=== PATIENT | male | born 1935 | race African-American/Black ===

== ENCOUNTER 2018-10-01 19:06 | Inpatient (IN) | payer OTHER ==
[~2018-10-01] VITALS: Ht 165.1 cm; Wt 87.1 kg
[2018-10-01] MEDS: IPRATROPIUM/ALBUTEROL 0.5-3(2.5)MG/3ML NEB INH SCH (01:25)
[2018-10-01] MEDS ORDERED: ALBU18HF2 IH (19:18)
[2018-10-01] MEDS ORDERED: METHYLPREDNISOLONE SOD SUCC 125 MG/2 ML VIAL IV STA (19:32)
[2018-10-01] MEDS ORDERED: IPRATROPIUM BROMIDE (0.02%) 0.5MG/2.5ML NEB HHN STA (19:32)
[2018-10-01] MEDS ORDERED: ALBUTEROL (0.083%) 2.5MG/3ML NEB HHN STA (19:32)
[2018-10-01] MEDS ORDERED: ASPIRIN 81MG TABLET PO ONE (19:45)
[2018-10-01] MEDS ORDERED: NITROGLYCERIN OINT 1GM/INCH UDPKT TD ONE (19:45)
[2018-10-01] MEDS ORDERED: FUROSEMIDE 40MG/4ML VIAL IV ONE (19:45)
[2018-10-01 22:25] LABS: CHLORIDE 109 mEq/L (98-107)
[2018-10-01 22:28] LABS: INR 1.1; PARTIAL THROMBOPLASTIN TIME 31.8 sec (23.4-31.0); PROTHROMBIN TIME 11.4 sec (9.1-11.1)
[2018-10-01] MEDS ORDERED: AZITHROMYCIN 500 MG in DEXT 5% WATER 250 ML IV STA (22:51)
[2018-10-01] MEDS ORDERED: CEFTRIAXONE 1 G PREMIX 50 ML IV ONE (23:00)
[2018-10-01] MEDS ORDERED: ASPIRIN 325MG EC TABLET PO ONE (23:00)
[2018-10-01] MEDS ORDERED: DIPHENHYDRAMINE 50MG/ML VIAL IV PRN (23:30)
[2018-10-01] MEDS ORDERED: IPRATROPIUM/ALBUTEROL 0.5-3(2.5)MG/3ML NEB INH PRN (23:30)
[2018-10-01] MEDS ORDERED: MAGNESIUM/ALUMINUM HYDROXIDE/SIMETHICONE 30ML UDC PO PRN (23:30)
[2018-10-01] MEDS ORDERED: HYDROCODONE/ACETAMINOPHEN 5/325MG TABLET PO PRN (23:30)
[2018-10-01] MEDS ORDERED: DOCUSATE SODIUM 100MG CAPSULE PO PRN (23:30)
[2018-10-01] MEDS ORDERED: ONDANSETRON HCL 4MG/2ML INJ IV PRN (23:30)
[2018-10-01] MEDS ORDERED: ACETAMINOPHEN 650MG SUPP PR PRN (23:30)
[2018-10-01] MEDS ORDERED: NA PHOS,M-B/NA PHOS,DI-BA ENEMA 118ML PR PRN (23:30)
[2018-10-01] MEDS ORDERED: GUAIFENESIN 200MG/10ML SUGAR FREE UDC PO PRN (23:30)
[2018-10-01 23:59] LABS: HEMATOCRIT. 42.2 % (42.0-52.0); HEMOGLOBIN. 13.6 g/dL (14.0-18.0); MEAN CORPUSCULAR HEMOGLOBIN 29.3 pg (28.0-32.0); MEAN CORPUSCULAR VOLUME 91.1 fL (80.0-94.0); MEAN PLATELET VOLUME 9.9 fl (7.4-10.4); RED BLOOD CELL COUNT 4.64 mill/uL (4.7-6.1); RED CELL DISTRIBUTION WIDTH 16.4 % (11.6-14.6)
[2018-10-02 02:31] LABS: PLATELET ESTIMATE DECREASED
[2018-10-02 02:40] LABS: PLATELET 30 x1000/uL (130-400)
[2018-10-02 06:35] LABS: CHLORIDE 106 mEq/L (98-107)
[2018-10-02 06:38] LABS: HEMATOCRIT. 39.9 % (42.0-52.0); HEMOGLOBIN. 12.9 g/dL (14.0-18.0); MEAN CORPUSCULAR HEMOGLOBIN 29.4 pg (28.0-32.0); MEAN CORPUSCULAR VOLUME 91.1 fL (80.0-94.0); RED BLOOD CELL COUNT 4.38 mill/uL (4.7-6.1); RED CELL DISTRIBUTION WIDTH 16.5 % (11.6-14.6)
[2018-10-02 06:42] LABS: LDL CHOLESTEROL 51 mg/dL (5-100)
[2018-10-02 06:43] LABS: HDL CHOLESTEROL 60 mg/dL (40-59)
[2018-10-02 07:09] LABS: PLATELET ESTIMATE DECREASED
[2018-10-02] MEDS: SODIUM CHLORIDE 0.9% INJ 3ML FLUSH IVF SCH ×3 (08:00→22:36)
[2018-10-02] MEDS ORDERED: ENOXAPARIN 40MG/0.4ML SYR SUBCUT SCH (09:00)
[2018-10-02] MEDS: METHYLPREDNISOLONE SOD SUCC 125 MG/2 ML VIAL IV SCH ×2 (10:30→21:55)
[2018-10-02] MEDS: IPRATROPIUM/ALBUTEROL 0.5-3(2.5)MG/3ML NEB INH SCH ×2 (10:40→17:39)
[2018-10-02] MEDS: CLONIDINE 0.1MG TABLET PO PRN (15:39)
[2018-10-02 18:33] VITALS: BP 134/65
[2018-10-02 20:00] VITALS: BP_SYST 106; BP_SYST 119; BP_DIAS 54; BP_DIAS 71
[2018-10-02] MEDS ORDERED: PIPERACILLIN/TAZ 2.25G PREMIX 50 ML IV SCH (21:15)
[2018-10-02] MEDS: AZITHROMYCIN 500 MG in DEXT 5% WATER 250 ML IV SCH (23:15)
[2018-10-02] MEDS: INSULIN GLARGINE UD 100 UNITS/ML SYR SUBCUT SCH (23:23)
[2018-10-03] VITALS: BP 128/72
[2018-10-03] MEDS ORDERED: PIPERACILLIN/TAZ 2.25G PREMIX 50 ML IV SCH
[2018-10-03] MEDS: IPRATROPIUM/ALBUTEROL 0.5-3(2.5)MG/3ML NEB INH SCH ×4 (01:04→21:16)
[2018-10-03] MEDS: METHYLPREDNISOLONE SOD SUCC 125 MG/2 ML VIAL IV SCH (02:41)
[2018-10-03 04:00] VITALS: BP 142/77
[2018-10-03] MEDS: SODIUM CHLORIDE 0.9% INJ 3ML FLUSH IVF SCH ×3 (05:51→21:21)
[2018-10-03 08:00] VITALS: BP 140/75
[2018-10-03] MEDS ORDERED: VANCOMYCIN 1500MG in DEXTROSE 5% WATER 250ML IV NR (08:00)
[2018-10-03] MEDS ORDERED: LEVOFLOXACIN 500MG PREMIX 100 ML IV NR (08:00)
[2018-10-03] MEDS: CHOLECALCIFEROL (D3) 1000 UNIT TABLET PO SCH (09:00)
[2018-10-03 10:32] LABS: HEMATOCRIT. 37.3 % (42.0-52.0); HEMOGLOBIN. 12.2 g/dL (14.0-18.0); MEAN CORPUSCULAR HEMOGLOBIN 29.4 pg (28.0-32.0); MEAN CORPUSCULAR VOLUME 89.7 fL (80.0-94.0); MEAN PLATELET VOLUME 8.5 fl (7.4-10.4); PLATELET 96 x1000/uL (130-400); RED BLOOD CELL COUNT 4.16 mill/uL (4.7-6.1); RED CELL DISTRIBUTION WIDTH 16.6 % (11.6-14.6)
[2018-10-03] MEDS: INSULIN GLARGINE UD 100 UNITS/ML SYR SUBCUT SCH ×2 (10:38→21:23)
[2018-10-03 10:42] LABS: CHLORIDE 107 mEq/L (98-107)
[2018-10-03] MEDS ORDERED: CHOL200059 PO (11:46)
[2018-10-03] MEDS ORDERED: VITA1CAP PO (11:46)
[2018-10-03 11:52] LABS: T4 FREE 1.09 ng/dL (0.76-1.46)
[2018-10-03 12:00] VITALS: BP 148/81
[2018-10-03] MEDS ORDERED: ATOR80TA MT (12:03)
[2018-10-03] MEDS ORDERED: PANT40TA4 MT (12:03)
[2018-10-03] MEDS ORDERED: FURO-152 MT (12:03)
[2018-10-03] MEDS ORDERED: AMLO5TAB4 MT (12:03)
[2018-10-03] MEDS ORDERED: CARB1TAB7 MT (12:03)
[2018-10-03] MEDS ORDERED: CLOP75TA16 MT (12:03)
[2018-10-03] MEDS ORDERED: TAMS-11 MT (12:03)
[2018-10-03] MEDS ORDERED: CALC0.253 MT (12:03)
[2018-10-03] MEDS ORDERED: MIR25 MT (12:03)
[2018-10-03] MEDS ORDERED: FLUT1DIS6 INH (12:07)
[2018-10-03] MEDS: BLOOD SUGAR DIAGNOSTIC STRIP TEST SCH ×3 (12:10→21:21)
[2018-10-03 12:33] LABS: D-DIMER 2.79 mg/L FEU (<0.50)
[2018-10-03] MEDS ORDERED: METHYLPREDNISOLONE SOD SUCC 40 MG/ML VIAL IV SCH (14:00)
[2018-10-03] MEDS ORDERED: DEXTROSE 50% WATER 50ML SYRINGE IV PRN (14:30)
[2018-10-03] MEDS: INSULIN LISPRO 100 UNITS/ML SUBCUT SCH ×3 (14:47→21:22)
[2018-10-03 16:00] VITALS: BP 159/82
[2018-10-03 16:39] LABS: CREATINE KINASE MB FRACTION 5.2 ng/mL (0.5-3.6)
[2018-10-03] MEDS ORDERED: CEFTRIAXONE 1 G PREMIX 50 ML IV SCH (17:00)
[2018-10-03] MEDS: TAMSULOSIN HCL 0.4MG SR CAPSULE PO SCH (17:22)
[2018-10-03 20:00] VITALS: BP 183/104
[2018-10-03] MEDS ORDERED: SODIUM CHLORIDE 0.9% 1000ML BAG (SEPSIS BOLUS) IV ONE (20:30)
[2018-10-03] MEDS ORDERED: SODIUM CHLORIDE 0.9% 250 ML IV ONE (21:00)
[2018-10-03] MEDS ORDERED: ATORVASTATIN CALCIUM 40MG TABLET PO SCH (21:00)
[2018-10-03] MEDS: BUDESONIDE 0.5MG/2ML NEB HHN SCH (21:17)
[2018-10-03] MEDS: PANTOPRAZOLE 40MG DR TABLET PO SCH (21:19)
[2018-10-03] MEDS: PRAMIPEXOLE DI-HCL 0.25MG TABLET PO SCH (21:20)
[2018-10-03] MEDS ORDERED: CARBIDOPA/LEVODOPA 10/100MG TABLET PO SCH (22:00)
[2018-10-03] MEDS: AZITHROMYCIN 500 MG in DEXT 5% WATER 250 ML IV SCH (22:07)
[2018-10-03 23:42] LABS: CREATINE KINASE MB FRACTION 4.8 ng/mL (0.5-3.6)
[2018-10-04] VITALS (7 sets, daily range): BP systolic 125–158; BP diastolic 71–92
[2018-10-04] MEDS: CARBIDOPA/LEVODOPA 10/100MG TABLET PO SCH ×3 (00:08→13:17)
[2018-10-04] MEDS: IPRATROPIUM/ALBUTEROL 0.5-3(2.5)MG/3ML NEB INH SCH ×4 (01:30→20:50)
[2018-10-04] MEDS: SODIUM CHLORIDE 0.45% 1,000 ML IV SCH ×2 (02:31→10:26)
[2018-10-04] MEDS: SODIUM CHLORIDE 0.9% INJ 3ML FLUSH IVF SCH ×2 (05:50→13:17)
[2018-10-04] MEDS: PRAMIPEXOLE DI-HCL 0.25MG TABLET PO SCH ×2 (05:50→13:17)
[2018-10-04] MEDS: BLOOD SUGAR DIAGNOSTIC STRIP TEST SCH ×3 (05:51→16:46)
[2018-10-04] MEDS: INSULIN LISPRO 100 UNITS/ML SUBCUT SCH ×3 (05:58→16:46)
[2018-10-04 06:46] LABS: HEMATOCRIT. 35.2 % (42.0-52.0); HEMOGLOBIN. 11.6 g/dL (14.0-18.0); MEAN CORPUSCULAR HEMOGLOBIN 29.4 pg (28.0-32.0); MEAN CORPUSCULAR VOLUME 88.9 fL (80.0-94.0); RED BLOOD CELL COUNT 3.96 mill/uL (4.7-6.1); RED CELL DISTRIBUTION WIDTH 16.2 % (11.6-14.6)
[2018-10-04 07:01] LABS: CHLORIDE 106 mEq/L (98-107)
[2018-10-04 07:12] LABS: CREATINE KINASE 121 IU/L (39-308); PHOSPHORUS 2.9 mg/dL (2.5-4.9)
[2018-10-04] MEDS ORDERED: LEVOFLOXACIN 250MG PREMIX 50 ML IV SCH (08:00)
[2018-10-04] MEDS: CHOLECALCIFEROL (D3) 1000 UNIT TABLET PO SCH (08:55)
[2018-10-04] MEDS: TAMSULOSIN HCL 0.4MG SR CAPSULE PO SCH (08:55)
[2018-10-04] MEDS: PANTOPRAZOLE 40MG DR TABLET PO SCH (08:58)
[2018-10-04] MEDS ORDERED: FOLIC ACID/VITAMIN B COMP W-C TABLET PO SCH (09:00)
[2018-10-04] MEDS ORDERED: CLOPIDOGREL 75MG TABLET PO SCH (09:00)
[2018-10-04] MEDS ORDERED: METHYLPREDNISOLONE SOD SUCC 40 MG/ML VIAL IV SCH (09:00)
[2018-10-04] MEDS ORDERED: CALCITRIOL 0.25MCG CAPSULE PO SCH (09:00)
[2018-10-04 09:38] LABS: PLATELET ESTIMATE SLIGHTLY DECREASED
[2018-10-04] MEDS: INSULIN GLARGINE UD 100 UNITS/ML SYR SUBCUT SCH (10:24)
[2018-10-04] MEDS ORDERED: VANC1PLA11 IV (11:53)
[2018-10-04] MEDS ORDERED: AZIT500V14 IV (11:53)
[2018-10-04] MEDS: CLONIDINE 0.1MG TABLET PO PRN (20:11)
[2018-10-04] MEDS: BUDESONIDE 0.5MG/2ML NEB HHN SCH (20:50)
[2018-10-05] MEDS ORDERED: LEVOFLOXACIN 500MG PREMIX 100 ML IV SCH (08:00)
== END 2018-10-04 22:00 | disposition short-term general hospital (02) | DRG 871 ==
LOC: ER 20:00 → EDBEDREQ 23:36 → EDBEDREQTM 23:36 → ENRESERV 10-02 17:35 → 8WST 10-02 18:42
PROVIDERS: ADMIT Family Medicine; ATTEND Family Medicine
DX: A41.50 Gram-negative sepsis, unspecified (principal); J15.6 Pneumonia due to other Gram-negative bacteria; J96.00 Acute respiratory failure, unspecified whether with hypoxia or hypercapnia; N17.0 Acute kidney failure with tubular necrosis; J44.0 Chronic obstructive pulmonary disease with (acute) lower respiratory infection; J44.1 Chronic obstructive pulmonary disease with (acute) exacerbation; G93.40 Encephalopathy, unspecified; I13.0 Hypertensive heart and chronic kidney disease with heart failure and stage 1 through stage 4 chronic kidney disease, or unspecified chronic kidney disease; E87.2 Acidosis; N39.0 Urinary tract infection, site not specified; I50.40 Unspecified combined systolic (congestive) and diastolic (congestive) heart failure; D69.6 Thrombocytopenia, unspecified; E11.21 Type 2 diabetes mellitus with diabetic nephropathy; E78.5 Hyperlipidemia, unspecified; N18.9 Chronic kidney disease, unspecified; E11.22 Type 2 diabetes mellitus with diabetic chronic kidney disease; E86.0 Dehydration; F03.90 Unspecified dementia, unspecified severity, without behavioral disturbance, psychotic disturbance, mood disturbance, and anxiety; G20 Parkinson's disease; Z86.73 Personal history of transient ischemic attack (TIA), and cerebral infarction without residual deficits; Z87.01 Personal history of pneumonia (recurrent); Z87.891 Personal history of nicotine dependence; Z99.81 Dependence on supplemental oxygen
CPT/HCPCS: 36415; 71045; 76770; 80061; 80202; 80305; 82550; 82553; 82962; 83036; 83605; 83735; 83880; 84100; 84439; 84443; 84484; 85379; 85384; 86022; 93005; 93306; 93970; 94640; 94644; 96365; 96375; 97162; 99285; J0456; J0696; J1815; J1940; J1956; J2405; J2543; J2920; J2930; J3370; J7040; J7050; J7060; J7611; J7620; J7626

== ENCOUNTER 2018-10-15 15:53 | Emergency (ER) | payer OTHER ==
[~2018-10-15] VITALS: Ht 175.3 cm; Wt 70.0 kg
[~2018-10-15 15:53] MED LIST: ALBU18HF2 IH; AMLO5TAB4 MT; ATOR80TA MT; AZIT500V14 IV; CALC0.253 MT; CARB1TAB7 MT; CHOL200059 PO; CLOP75TA16 MT; FLUT1DIS6 INH; FURO-152 MT; MIR25 MT; PANT40TA4 MT; TAMS-11 MT; VANC1PLA11 IV; VITA1CAP PO
[2018-10-15] MEDS ORDERED: ASPIRIN 81MG TABLET PO ONE (16:15)
[2018-10-15 17:46] LABS: HEMATOCRIT. 43.3 % (42.0-52.0); HEMOGLOBIN. 14.2 g/dL (14.0-18.0); MEAN CORPUSCULAR HEMOGLOBIN 29.2 pg (28.0-32.0); MEAN CORPUSCULAR VOLUME 89.3 fL (80.0-94.0); RED BLOOD CELL COUNT 4.84 mill/uL (4.7-6.1); RED CELL DISTRIBUTION WIDTH 16.4 % (11.6-14.6)
[2018-10-15 17:48] LABS: CHLORIDE 106 mEq/L (98-107)
[2018-10-15 17:50] LABS: INR 1.1; PARTIAL THROMBOPLASTIN TIME 23.1 sec (23.4-31.0); PROTHROMBIN TIME 10.7 sec (9.1-11.1)
[2018-10-15 18:00] LABS: PLATELET 45 x1000/uL (130-400)
[2018-10-15 20:07] LABS: CLARITY URINE CLEAR (CLEAR); COLOR URINE YELLOW (YELLOW); KETONES URINE NEGATIVE (NEGATIVE); LEUKOCYTE ESTERASE URINE NEGATIVE (NEGATIVE); NITRITE URINE NEGATIVE (NEGATIVE); OCCULT BLOOD URINE NEGATIVE (NEGATIVE); PROTEIN URINE TRACE (NEGATIVE); SPECIFIC GRAVITY URINE 1.015 (1.005-1.030); UROBILINOGEN URINE 0.2 E.U./dL (0.2-1.0)
[2018-10-15 21:03] LABS: PLATELET ESTIMATE MARKEDLY DECREASED
[2018-10-15 21:43] VITALS: BP 164/84
== END 2018-10-15 21:45 | disposition short-term general hospital (02) ==
LOC: ER 16:11 → CANBEDREQ 18:41 → ER 21:45
DX: R07.89 Other chest pain (principal); D69.6 Thrombocytopenia, unspecified; N28.9 Disorder of kidney and ureter, unspecified; R94.39 Abnormal result of other cardiovascular function study; J44.9 Chronic obstructive pulmonary disease, unspecified
CPT/HCPCS: 36415; 71045; 83880; 84484; 93005; 99285